=== PATIENT | male | born 2000 | race Caucasian/White ===

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

== ENCOUNTER 2021-08-28 17:03 | Emergency (ER) | payer OTHER ==
[~2021-08-28] VITALS: Ht 162.6 cm; Wt 66.4 kg
[2021-08-28 17:07] VITALS: BP 146/84
[2021-08-29] MEDS ORDERED: BICT1TAB PO (15:11)
[2021-08-31] MEDS ORDERED: BICT1TAB PO (11:14)
[2021-08-31] MEDS ORDERED: CEPH500C3 PO (11:15)
[2021-08-31] MEDS ORDERED: CLIN300C3 PO (11:17)
== END 2021-08-28 18:39 | disposition home or self-care (01) ==
LOC: EMS 17:06
DX: M79.602 Pain in left arm (principal); F12.90 Cannabis use, unspecified, uncomplicated
CPT/HCPCS: 93971; 99284; Z7502

== ENCOUNTER 2021-09-08 09:21 | Emergency (ER) | payer OTHER ==
[~2021-09-08] VITALS: Ht 162.6 cm; Wt 63.6 kg
[~2021-09-08 09:21] MED LIST: BICT1TAB PO; CEPH500C3 PO; CLIN300C3 PO
[2021-09-08 14:06] LABS: INFLUENZA TYPE A NEGATIVE FOR TYPE A (NEGATIVE); INFLUENZA TYPE B NEGATIVE FOR TYPE B (NEGATIVE)
[2021-09-08 14:40] VITALS: BP 131/74
== END 2021-09-08 14:41 | disposition home or self-care (01) ==
LOC: EMS 09:21
DX: L27.0 Generalized skin eruption due to drugs and medicaments taken internally (principal); B09 Unspecified viral infection characterized by skin and mucous membrane lesions; F12.90 Cannabis use, unspecified, uncomplicated; Z79.899 Other long term (current) drug therapy
CPT/HCPCS: 87804; 99283

== ENCOUNTER 2023-04-09 20:16 | Emergency (ER) | payer OTHER ==
[~2023-04-09] VITALS: Ht 162.6 cm; Wt 62.0 kg
[~2023-04-09 20:16] MED LIST changes: +CEPH-558 PO; -CEPH500C3 PO; -CLIN300C3 PO; +CLIN300C58 PO
[2023-04-09 20:21] VITALS: TEMP 98.6
[2023-04-09] MEDS ORDERED: KETOROLAC TROMETHAMINE 30 MG/ML VIAL IM ONE (22:00)
[2023-04-09 22:11] LABS: BASOPHILS % (AUTO) 0.4 % (0.0-2.0); EOSINOPHILS % (AUTO) 0.6 % (1.0-6.0); HEMATOCRIT 47.8 % (41-53); HEMOGLOBIN 16.2 g/dL (13.5-17.5); LYMPHOCYTES # (AUTO) 1.8 K/uL (1.0-4.8); LYMPHOCYTES % (AUTO) 26.4 % (22.0-44.0); MEAN CORPUSCULAR HEMOGLOBIN 32.5 pg (26.0-34.0); MEAN CORPUSCULAR HGB CONC 33.9 G/dL (31.0-37.0); MEAN CORPUSCULAR VOLUME 96 fL (80-100); MONOCYTES # (AUTO) 0.6 K/uL (0.1-1.0); MONOCYTES % (AUTO) 9.1 % (2.0-9.0); NEUTROPHILS # (AUTO) 4.3 K/uL (1.8-7.7); NEUTROPHILS % (AUTO) 63.5 % (40.0-70.0); PLATELET COUNT (AUTO) 205 K/uL (150-450); RED BLOOD CELL COUNT(AUTO) 4.99 MIL/uL (4.50-5.90); RED CELL DISTRIBUTION WIDTH 13.2 % (11.5-14.5)
[2023-04-09 22:21] LABS: ANION GAP 11 mmol/L (8-16); CALCIUM, TOTAL 8.8 mg/dL (8.8-10.5); CARBON DIOXIDE 25 mmol/L (22-29); CHLORIDE 100 mmol/L (98-107); CREATININE 1.08 mg/dL (0.60-1.30); GLOMERULAR FILTR. RATE CALC > 60 mL/min (>60); GLUCOSE,RANDOM 101 mg/dL (70-110); POTASSIUM 3.6 mmol/L (3.5-5.1); SODIUM SERUM 136 mmol/L (136-145)
[2023-04-09 22:27] LABS: ALANINE AMINOTRANSFERASE 30 U/L (12-78); ALBUMIN 4.2 g/dL (3.4-5.0); ALKALINE PHOSPHATASE 100 U/L (46-116); ASPARTATE AMINOTRANSFERASE 20 U/L (15-37); BILIRUBIN,TOTAL 0.6 mg/dL (0.1-1.0)
[2023-04-09 23:07] VITALS: BP 128/78; PULSE 68; RESP 23
== END 2023-04-09 23:09 | disposition home or self-care (01) ==
LOC: EMS 20:16
DX: M94.0 Chondrocostal junction syndrome [Tietze] (principal); N40.0 Benign prostatic hyperplasia without lower urinary tract symptoms; F12.90 Cannabis use, unspecified, uncomplicated; F14.90 Cocaine use, unspecified, uncomplicated
CPT/HCPCS: 99285; 71045; 80053; 85025; 36415; 93005; 96372; J1885

== ENCOUNTER 2024-07-08 19:47 | Emergency (ER) | payer OTHER ==
[~2024-07-08] VITALS: Ht 162.6 cm; Wt 65.9 kg
[2024-07-08 20:22] LABS: BASOPHILS % (AUTO) 0.2 % (0.0-2.0); EOSINOPHILS % (AUTO) 0.7 % (1.0-6.0); HEMATOCRIT 48.9 % (41-53); HEMOGLOBIN 16.8 g/dL (13.5-17.5); LYMPHOCYTES # (AUTO) 1.6 K/uL (1.0-4.8); LYMPHOCYTES % (AUTO) 13.2 % (22.0-44.0); MEAN CORPUSCULAR HGB CONC 34.3 G/dL (31.0-37.0); MEAN CORPUSCULAR VOLUME 96 fL (80-100); MONOCYTES # (AUTO) 1.2 K/uL (0.1-1.0); MONOCYTES % (AUTO) 10.2 % (2.0-9.0); NEUTROPHILS # (AUTO) 9.1 K/uL (1.8-7.7); NEUTROPHILS % (AUTO) 75.7 % (40.0-70.0); PLATELET COUNT (AUTO) 183 K/uL (150-450); RED BLOOD CELL COUNT(AUTO) 5.09 MIL/uL (4.50-5.90); RED CELL DISTRIBUTION WIDTH 12.9 % (11.5-14.5)
[2024-07-08 20:31] LABS: ANION GAP 11 mmol/L (8-16); CALCIUM, TOTAL 8.9 mg/dL (8.8-10.5); CARBON DIOXIDE 25 mmol/L (22-29); CHLORIDE 98 mmol/L (98-107); CREATININE 1.22 mg/dL (0.60-1.30); GLOMERULAR FILTR. RATE CALC > 60 mL/min (>60); GLUCOSE,RANDOM 106 mg/dL (70-110); POTASSIUM 3.4 mmol/L (3.5-5.1); SODIUM SERUM 134 mmol/L (136-145); UREA NITROGEN, BLOOD 15 mg/dL (7-18)
[2024-07-08 20:36] LABS: ALANINE AMINOTRANSFERASE 48 U/L (12-78); ALBUMIN 3.8 g/dL (3.4-5.0); ALKALINE PHOSPHATASE 126 U/L (46-116); ASPARTATE AMINOTRANSFERASE 34 U/L (15-37); BILIRUBIN,TOTAL 1.5 mg/dL (0.1-1.0); TOTAL PROTEIN, SERUM 7.8 g/dL (6.4-8.2)
[2024-07-08 21:00] LABS: COVID AG,FIA SOURCE NASAL SWAB
[2024-07-08 21:24] LABS: SARS-COV2 (COVID) ANTIGEN,FIA Negative (Negative)
[2024-07-08 21:38] LABS: INFLUENZA TYPE A NEGATIVE FOR TYPE A (NEGATIVE); INFLUENZA TYPE B NEGATIVE FOR TYPE B (NEGATIVE)
[2024-07-08] MEDS ORDERED: ONDA-104 PO (22:43)
[2024-07-08] MEDS ORDERED: ACET-66 PO (22:43)
[2024-07-08] MEDS ORDERED: DIPH-1130 PO (22:43)
[2024-07-08] MEDS: ACETAMINOPHEN 500 MG TABLET PO ONE (22:48)
[2024-07-08] MEDS: ONDANSETRON 4 MG TABLET PO ONE (22:48)
[2024-07-08] MEDS: DIPHENOXYLATE/ATROP 2.5-0.025 MG TABLET PO ONE (22:49)
[2024-07-08 22:55] VITALS: BP 132/82; PULSE 90; RESP 16; TEMP 98.9; O2SAT 98
== END 2024-07-08 23:00 | disposition home or self-care (01) ==
LOC: EMS 19:47
DX: K52.9 Noninfective gastroenteritis and colitis, unspecified (principal); F12.90 Cannabis use, unspecified, uncomplicated; N40.0 Benign prostatic hyperplasia without lower urinary tract symptoms; Z20.822 Contact with and (suspected) exposure to COVID-19
CPT/HCPCS: 99284; 87426; 80053; 85025; 87804; 36415; Q0162